=== PATIENT | male | born 1985 ===

== ENCOUNTER 2022-11-01 10:48 | Emergency (ER) | payer SELFPAY ==
[2022-11-01] MEDS ORDERED: Sodium Chloride 0.9% 2.5 ML Syringe FLUSH PRN (10:49)
[2022-11-01] MEDS ORDERED: Sodium Chloride 0.9% 10 ML Syringe FLUSH PRN (10:49)
[2022-11-01] MEDS ORDERED: Ondansetron 4 MG Tab.DIS PO ONE (10:49)
[2022-11-01] MEDS ORDERED: Albuterol/Ipratropium 3.0-0.5 MG/3 ML Neb Soln NEB ONE (10:49)
[2022-11-01] MEDS ORDERED: Sodium Chloride 0.9% 1,000 ML IV ONE ×3 (10:49→12:20)
[2022-11-01] MEDS ORDERED: Albuterol 0.083% 2.5 MG/3 ML Neb Soln NEB ONE ×2 (10:56→11:51)
[2022-11-01] MEDS ORDERED: Ondansetron 4 MG/2 ML SDV IVPUSH ONE (10:57)
[2022-11-01] MEDS ORDERED: Ondansetron 4 MG/2 ML SDV ONE (10:58)
[2022-11-01 10:59] LABS: HEMATOCRIT 48.8 % (38.0-50.0); HEMOGLOBIN 12.9 g/dL (13.0-17.0); MEAN CORPUSCULAR HEMOGLOBIN 32.3 pg (27.0-32.0); MEAN CORPUSCULAR HGB CONC 26.4 g/dL (31.0-37.0); NRBC ABSOLUTE 0 K/uL; PLATELET COUNT,PLT 313 K/uL (150-400)
[2022-11-01] MEDS ORDERED: Calcium Gluconate 10% 1 GM/10 ML SDV IVPUSH ONE (11:10)
[2022-11-01 11:14] LABS: HEMOGLOBIN A1C 8.1 %
[2022-11-01] MEDS ORDERED: Heparin Sodium/0.45% NaCl 500 ML ONE (11:14)
[2022-11-01] MEDS ORDERED: Heparin Sodium/0.45% NaCl 500 ML IV SCH (11:15)
[2022-11-01] MEDS ORDERED: Heparin Sodium 5,000 Units/ML Vial ONE (11:15)
[2022-11-01] MEDS ORDERED: Heparin Sodium 5,000 Units/ML Vial IVPUSH ONE ×2 (11:16→11:23)
[2022-11-01 11:21] LABS: PCO2 VENOUS 23 mmHG (41-51); PO2 VENOUS 65 mmHG
[2022-11-01 11:23] LABS: D-DIMER QUANTITATIVE 0.71 mg/L FEU (0.00-0.50); INR 1.06 (0.86-1.11); PTT,PARTIAL THROMBOPLSTIN TIME 40.4 SEC (23.9-30.7)
[2022-11-01 11:24] LABS: PH,VENOUS < 6.82 (7.31-7.41)
[2022-11-01] MEDS ORDERED: Sodium Bicarbonate 8.4% 50 MEQ/50 ML Syringe IVPUSH ONE (11:25)
[2022-11-01 11:28] LABS: A/G RATIO 1.4 (0.9-1.6); ALANINE AMINOTRANSFERASE,ALT 221 IU/L (14-63); ALKALINE PHOSPHATASE 83 U/L (46-116); ASPARTATE AMNIOTRANSFERASE,AST 88 IU/L (15-37); BILIRUBIN TOTAL 0.6 mg/dL (0.2-1.0); BLOOD UREA NITROGEN,BUN 40 mg/dL (7.0-18.0); CALCIUM 7.4 mg/dL (8.5-10.1); CHLORIDE,CL 65 mmol/L (98-107); CREATININE 3.6 mg/dL (0.8-1.3); EST CRCL DRUG DOSING (CG) 26.77 mL/min; ETHANOL BLOOD MEDICAL <3 mg/dL; LIPASE 26 U/L (16-77); MAGNESIUM 3.1 mg/dL (1.8-2.4); PROTEIN TOTAL,TP 6.9 g/dL (6.4-8.2); TSH ULTRASENSITIVE 4.43 uIU/mL (0.36-3.74)
[2022-11-01 11:28] LABS: PO2 ARTERIAL 180 mmHG (80-105)
[2022-11-01 11:32] LABS: PCO2 ARTERIAL < 15 mmHG (35-45)
[2022-11-01 11:38] LABS: LYMPHOCYTES ABSOLUTE MAN 1.8 (0.6-2.4); LYMPHOCYTES PERCENT MAN 6 % (16.0-40.0); METAMYELOCYTE ABSOLUTE MAN 0.9; METAMYELOCYTE PERCENT MAN 3 %; MONOCYTES ABSOLUTE MAN 1.8 (0.0-0.8); MONOCYTES PERCENT MAN 6 % (0.0-15.0); MYELOCYTE ABSOLUTE MAN 0.3; MYELOCYTE PERCENT MAN 1 %
[2022-11-01 11:39] LABS: BAND ABSOLUTE MAN 0.6; BAND PERCENT MAN 2 %; SEG NEUTROPHILS ABSOLUTE MAN 24.4 (1.4-5.7); SEG NEUTROPHILS PERCENT MAN 82 % (48.0-80.0)
[2022-11-01 11:41] LABS: CARBON DIOXIDE,CO2 4.1 mmol/L (21.0-32.0)
[2022-11-01 11:42] LABS: ESTIMATED GFR 21 mL/min (>60); GLUCOSE RANDOM 1430 mg/dL (74-106); PHOSPHORUS 11.7 mg/dL (2.6-4.7)
[2022-11-01 11:43] LABS: POTASSIUM,K 8.3 mmol/L (3.5-5.1); SODIUM,NA 102 mmol/L (136-148)
[2022-11-01] MEDS ORDERED: Insulin Regular, Human 100 Units/ML 10 ML Vial IVPUSH ONE (11:43)
[2022-11-01] MEDS ORDERED: Glucagon,Human Recombinant 1 MG Vial IM PRN (11:43)
[2022-11-01] MEDS ORDERED: 50% Dextrose in Water 50 ML Syringe IVPUSH PRN (11:43)
[2022-11-01] MEDS ORDERED: Insulin Regular in 0.9 % NACL 100 ML IV SCH (11:45)
[2022-11-01 11:48] LABS: LACTIC ACID 6.7 mmol/L (0.4-2.0)
[2022-11-01 11:50] LABS: BILIRUBIN,URINE NEGATIVE (NEGATIVE); COLOR,URINE YELLOW; GLUCOSE,URINE >=1000 mg/dL (NEGATIVE); KETONES,URINE 40 mg/dL (NEGATIVE); LEUKOCYTE ESTERASE,URINE NEGATIVE (NEGATIVE); NITRITE,URINE NEGATIVE (NEGATIVE); OCCULT BLOOD,URINE LARGE (NEGATIVE); PROTEIN,URINE TRACE mg/dL (NEGATIVE); UROBILINOGEN,URINE 0.2 EU/dL (<2.0)
[2022-11-01] MEDS ORDERED: Sodium Bicarbonate 100 MEQ in Dextrose 5% in Water 100 ML IV ONE ×4 (11:55→13:31)
[2022-11-01 11:58] LABS: APPEARANCE,URINE HAZY
[2022-11-01 11:59] LABS: BACTERIA,URINE FEW (NEGATIVE); EPITHELIAL CELLS,URINE OCCASIONAL (NONE-FEW); WBC,URINE 0-4 (0-5/HPF)
[2022-11-01 12:00] LABS: AMPHETAMINES SCREEN, URINE NEGATIVE (CUTOFF=500); BARBITURATE SCREEN,URINE NEGATIVE (CUTOFF=200); BENZODIAZEPINES SCREEN,URINE NEGATIVE (CUTOFF=150); BUPRENORPHINE SCREEN,URINE NEGATIVE (CUTOFF=10); METHADONE SCREEN, URINE NEGATIVE (CUTOFF=200); METHAMPHETAMINES SCREEN, URINE NEGATIVE (CUTOFF=500); OXYCODONE SCREEN,URINE NEGATIVE (CUT0FF=100); PCP SCREEN,URINE NEGATIVE (CUTOFF=25); PROPOXYPHENE SCREEN,URINE NEGATIVE (CUTOFF=300); THC SCREEN,URINE 20 NG/ML NEGATIVE (CUTOFF=50)
[2022-11-01 12:01] LABS: T4 FREE 0.61 ng/dL (0.76-1.46)
[2022-11-01] MEDS ORDERED: LORazepam 2 MG/ML SDV IVPUSH ONE ×2 (12:11→12:55)
[2022-11-01] MEDS ORDERED: LORazepam 2 MG/ML SDV ONE (12:11)
[2022-11-01] MEDS ORDERED: Piperacillin/Tazobactam 3.375 GM in Sodium Chloride 0.9% 100 ML IV ONE (13:26)
[2022-11-01 13:43] LABS: BASE EXCESS ARTERIAL -23.6 (-2.0-3.0); BICARBONATE,ARTERIAL 5 mEq/L (22-26); PCO2 ARTERIAL 20 mmHG (35-45); PO2 ARTERIAL 136 mmHG (80-105)
[2022-11-01 13:45] LABS: CALCIUM 6.9 mg/dL (8.5-10.1); CARBON DIOXIDE,CO2 7.9 mmol/L (21.0-32.0); CREATININE 2.9 mg/dL (0.8-1.3); EST CRCL DRUG DOSING (CG) 33.24 mL/min; POTASSIUM,K 5.1 mmol/L (3.5-5.1)
[2022-11-01] MEDS ORDERED: Sodium Bicarbonate 150 MEQ in Dextrose 5% in Water 1,000 ML IV ONE ×2 (13:45)
== END 2022-11-01 13:42 ==
LOC: MW.ED 10:48
DX: E11.10 Type 2 diabetes mellitus with ketoacidosis without coma (principal); E87.5 Hyperkalemia; E87.1 Hypo-osmolality and hyponatremia; I48.91 Unspecified atrial fibrillation; N17.9 Acute kidney failure, unspecified; Z88.8 Allergy status to other drugs, medicaments and biological substances; Z20.822 Contact with and (suspected) exposure to COVID-19
CPT/HCPCS: 36415; 36600; 71045; 80048; 80053; 80305; 80307; 81001; 82009; 82803; 82947; 83036; 83605; 83690; 83735; 84100; 84439; 84443; 84484; 85025; 85379; 85610; 85730; 87040; 87635; 93005; 94640; 96365; 96366; 96375; 96376; 99285; J0612; J1644; J1815; J2060; J2405; J2543; J3490; J7030; J7060; 93010; 99291; J7620-GY; U0002